=== PATIENT | female | born 1950 ===

== ENCOUNTER → 2018-01-05 14:14 | Outpatient (REF) | payer OTHER, SELFPAY ==
[2018-01-05 14:56] LABS: Add Manual Diff / Slide Review NO; Basophils Percent Auto 0.8 % (0-2); Eosinophils Percent Auto 3.1 % (2-4); Hemoglobin 13.6 g/dL (12.0-16.0); Lymphocytes Percent Auto 27.8 % (25-40); Mean Corpuscular Hemoglobin 30.8 PG (26-34); Mean Corpuscular Volume 90.8 fL (80-100); Monocytes Percent Auto 10.3 % (3-14); Neutrophils Absolute Auto 2100 /uL (3000-5900); Platelet Count 270 X10^3/uL (150-400); Red Cell Distribution Width 14.1 % (11.6-14.8); White Blood Cell Count 3.7 X10^3/uL (4.5-11.0)
[2018-01-05 15:01] LABS: HEMOLYSIS 15 (0-50); Iron 127 ug/dL (37-170)
[2018-01-05 15:02] LABS: Alanine Aminotransferase 24 IU/L (9-52); Albumin 3.9 g/dL (3.5-5.0); Albumin Globulin Ratio 1.3 (1.0-2.8); Alkaline Phosphatase 71 U/L (38-126); Aspartate Aminotransferase 28 IU/L (14-36); BUN Creatinine Ratio 28.6 (6-22); Bilirubin Total 0.7 mg/dL (0.2-1.3); Blood Urea Nitrogen 20 mg/dL (7-17); Calcium 9.3 mg/dL (8.4-10.2); Carbon Dioxide 30 mmol/L (22-32); Chloride 104 mmol/L (98-107); Cholesterol 177 mg/dL (140-199); Estimated Glomerular Filt Rate > 60.0 mL/min (>60); Globulin 2.9 g/dL (1.7-4.1); Glucose 83 mg/dL (80-110); HDL Cholesterol 53 mg/dL (40-60); HEMOLYSIS < 15 (0-50); LDL Cholesterol Calculated 104 mg/dL (<100); Potassium 4.4 mmol/L (3.4-5.1); Sodium 143 mmol/L (137-145); Total Protein 6.8 g/dL (6.3-8.2); Triglycerides 102 mg/dL (35-150)
[2018-01-05 15:10] LABS: Percent Iron Saturation 44 % (15-50); Total Iron Binding Capacity 288 ug/dL (265-497); Transferrin 232 mg/dL (206-381)
[2018-01-05 15:21] LABS: Free T3, Triiodothyronine Free 3.41 pg/mL (2.77-5.27); Free T4, Direct Thyroxine 0.96 ng/dL (0.78-2.19); T4 Total Thyroxine 6.73 ug/dL (5.5-11.0); Triiodothryronine T3 Uptake 35.7 % (23.5-40.5)
[2018-01-05 15:24] LABS: Hemoglobin A1C% w Est Avg Glu 5.2 % (4.0-6.0)
[2018-01-05 15:40] LABS: Cortisol AM (Before 10AM) 9.83 ug/dL (4.46-22.7)
[2018-01-05 15:58] LABS: Vitamin B12 755 pg/mL (239-931)
[2018-01-07 14:08] LABS: Dehydroepiandrosterone Sulfate 39 mcg/dL (12-133)
[2018-01-09 17:15] LABS: Triiodothyronine T3 Reverse 11 ng/dL (8-25)
[2018-01-09 23:25] LABS: Methylmalonic Acid 154 nmol/L (87-318)
[2018-01-11 23:17] LABS: Magnesium, RBC 6.1 mg/dL (4.0-6.4)
== END ==
LOC: LAB 14:14
PROVIDERS: Visit Provider Naturopath
DX: R53.83 Other fatigue (principal); I47.1 Supraventricular tachycardia; G47.00 Insomnia, unspecified; N95.8 Other specified menopausal and perimenopausal disorders
CPT/HCPCS: 36415; 80053; 80061; 82533; 82542; 82607; 82627; 83036; 83540; 83550; 83735; 83921; 84255; 84436; 84439; 84479; 84481; 84482; 85025